=== PATIENT | female | born 1975 | race Caucasian/White ===

== ENCOUNTER 2022-02-25 10:05 | Outpatient (CLI) | payer OTHER, SELFPAY ==
[2022-02-25 14:34] LABS: Chloride* 104 mmol/L (96-114); Potassium* 4.6 mmol/L (3.6-5.1); Sodium* 139 mmol/L (135-149)
[2022-02-25 14:36] LABS: Carbon Dioxide* 27 mmol/L (20-32); Cholesterol* 193 mg/dL (90-199); Creatinine* 0.9 mg/dL (0.5-1.5); Estimated Glomerular Filt Rate 80 ml/min
[2022-02-25 14:37] LABS: Blood Urea Nitrogen* 18 mg/dL (5-24); Calcium* 8.8 mg/dL (8.4-10.6); Glucose* 90 mg/dL (60-115); Triglycerides* 129 mg/dL (40-149)
[2022-02-25 14:38] LABS: HDL Cholesterol* 37 mg/dL (>=50); LDL Cholesterol Calculated 130 mg/dL (<100)
== END 2022-02-25 10:06 | disposition home or self-care (01) ==
PROVIDERS: PCP Family Medicine; Visit Provider Family Medicine
DX: Z01.419 Encounter for gynecological examination (general) (routine) without abnormal findings (principal); E03.9 Hypothyroidism, unspecified; I10 Essential (primary) hypertension; E78.5 Hyperlipidemia, unspecified; Z13.0 Encounter for screening for diseases of the blood and blood-forming organs and certain disorders involving the immune mechanism
CPT/HCPCS: 80048; 80061; 84443

== ENCOUNTER 2023-01-26 08:27 | Outpatient (CLI) | payer OTHER, SELFPAY | END 2023-01-26 08:28 | disposition home or self-care (01) | PROVIDERS: PCP Family Medicine; Visit Provider Family Medicine | DX: Z00.00 Encounter for general adult medical examination without abnormal findings (principal); I10 Essential (primary) hypertension; E78.5 Hyperlipidemia, unspecified; E03.9 Hypothyroidism, unspecified | CPT/HCPCS: 80048; 80061; 84439; 84443 ==

== ENCOUNTER 2024-03-31 09:50 | Outpatient (CLI) | payer OTHER, SELFPAY | END 2024-03-31 09:51 | disposition home or self-care (01) | PROVIDERS: PCP Family Medicine; Visit Provider Family Medicine | DX: E78.2 Mixed hyperlipidemia (principal); E03.9 Hypothyroidism, unspecified; I10 Essential (primary) hypertension | CPT/HCPCS: 80048; 80061; 84439; 84443 ==

== ENCOUNTER 2025-05-02 09:48 | Outpatient (CLI) | payer OTHER, SELFPAY | END 2025-05-02 09:49 | disposition home or self-care (01) | PROVIDERS: PCP Family Medicine; Visit Provider Family Medicine | DX: E78.2 Mixed hyperlipidemia (principal); E03.9 Hypothyroidism, unspecified | CPT/HCPCS: 80061; 84439; 84443 ==